=== PATIENT | male | born 1990 | race American Indian/Alaskan Native ===

== ENCOUNTER 2020-03-09 11:11 | Emergency (ER) | payer SELFPAY ==
[2020-03-09 11:40] VITALS: BP 112/64
--- NOTE | 2020-03-09 13:06 | XRay Report ---
CHEST 2 VIEWS INDICATION / CLINICAL INFORMATION: Chest Pain. FINDINGS: SUPPORT DEVICES: None. HEART / MEDIASTINUM: No significant abnormality. LUNGS / PLEURA: No significant pulmonary or pleural abnormality. No pneumothorax. ADDITIONAL FINDINGS: No significant additional findings. IMPRESSION: 1. No acute findings. Signer Name: El Duque MD Signed: 03/09/2020 1:01 PM Workstation Name: [id number] ([id number]
--- NOTE | 2020-03-09 15:06 | Emergency Department Report ---
ED Chest Pain HPI - General Chief Complaint: Chest Pain Stated Complaint: CHEST PAIN/NUMBNESS Time Seen by Provider: 03/09/20 15:01 Source: patient Mode of arrival: Ambulatory Limitations: No Limitations - Related Data Allergies Allergy/AdvReac Type Severity Reaction Status Date / Time No Known Allergies Allergy Unverified 03/09/20 11:40 ED Review of Systems ROS: Stated complaint: CHEST PAIN/NUMBNESS Other details as noted in HPI ED Past Medical Hx - Past Medical History Previous Medical History?: Yes Additional medical history: INFLAMMATION AROUND HEART - Surgical History Past Surgical History?: No Hx Appendectomy: Yes ED Physical Exam - General Limitations: No Limitations ED Course Vital Signs 03/09/20 11:38 Temperature 98.7 F Pulse Rate 71 Respiratory 72 H Rate Blood Pressure 112/64 [Left] O2 Sat by Pulse 99 Oximetry ED Medical Decision Making - Radiology Data Radiology results: report reviewed Referring Physician:ED DOCPatient Name:LAKSHMI MCCANNPatient ID:[id number] of :[id number]:MaleAccession:[id number] Date:2009-09-82Gbzmzx Status:Finalized Findings [facility] [address] [place] [address] XRay Report Signed Patient: LAKSHMI MCCANN MR#: [id number] : 1990 Acct:[id number] Age/Sex: 29 / M ADM Date: 03/09/20 Loc: ED Attending Dr: Ordering Physician: EMILY LEBRON MD Date of Service: 03/09/20 Procedure(s): XR chest routine 2V Accession Number(s): [id number] cc: ED MD VI Fluoro Time In Minutes: CHEST 2 VIEWS INDICATION / CLINICAL INFORMATION: Chest Pain. FINDINGS: SUPPORT DEVICES: None. HEART / MEDIASTINUM: No significant abnormality. LUNGS / PLEURA: No significant pulmonary or pleural abnormality. No pneumothorax. ADDITIONAL FINDINGS: No significant additional findings. IMPRESSION: 1. No acute findings. Signer Name: El Duque MD Signed: 03/09/2020 1:01 PM Workstation Name: [id number] Transcribed By: BC Dictated By: El Duque MD Electronically Authenticated By: El Duque MD Signed Date/Time: 03/09/20 130 DD/ 1301 TD/TT: Critical care attestation.: If time is entered above; I have spent that time in minutes in the direct care of this critically ill patient, excluding procedure time. ED Disposition Condition: Stable
== END 2020-03-09 16:15 | disposition left against medical advice (07) ==
LOC: ED 11:11
DX: R07.89 Other chest pain (principal); Z53.21 Procedure and treatment not carried out due to patient leaving prior to being seen by health care provider
CPT/HCPCS: 71046; 93005